=== PATIENT | male | born 1970 | race Caucasian/White ===

== ENCOUNTER 2023-11-19 16:00 | Emergency (ER) | payer MEDICAID, SELFPAY ==
[2023-11-19 16:01] VITALS: BP 141/107; PULSE 91; RESP 20; TEMP 36.1; O2SAT 98; BMI 32.5
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
--- NOTE | 2023-11-19 16:42 | CT_ITS ---
EXAM: CT CERVICAL SPINE WITHOUT INTRAVENOUS CONTRAST CLINICAL INDICATION: Injury/Pain TECHNIQUE: Helically acquired images were obtained of the cervical spine without intravenous contrast. 2D reformatted images were reviewed. This CT exam was performed using one or more of the following dose reduction techniques: automated exposure control, adjustment of the mA and/or kV according to patient size, and/or use of iterative reconstruction technique. RADIATION DOSE: CTDIvol = 27.45 mGy, DLP = 587.75 mGy-cm COMPARISON: No relevant prior studies available. FINDINGS: VERTEBRAE: Unremarkable. No fracture. No traumatic subluxation. No discrete lytic or blastic abnormality. Normal alignment. Normal craniocervical junction and cervicothoracic junction. DISCS/SPINAL CANAL/NEURAL FORAMINA: Degenerative disc disease at C4-C5 and C5-C6. These levels show loss of disc height, prominent posterior marginal osteophytes and disc bulges especially at C4-C5 and worse to the left with narrowing of the left neural foramina at both levels. Disc heights are preserved at other levels. No critical stenosis. SOFT TISSUES: Unremarkable. No prevertebral soft tissue swelling. LYMPH NODES: Unremarkable. No cervical adenopathy. LUNG APICES: Unremarkable as visualized. Clear. CT/Spine Cervical without Contras IMPRESSION: No evidence of acute cervical spinal fracture or spondylolisthesis. Degenerative disc disease including posterior disc bulges at C4-C5 and C5-C6. Electronically Signed: Esteban Dixon MD at 17:20 EDT ,
[2023-11-19] MEDS: HYDROcodone Bitartrate/Apap 5/325 Tablet PO (16:47)
--- NOTE | 2023-11-19 17:00 | RAD_ITS ---
STUDY: X-RAY - LEFT HAND REASON FOR EXAM: Male, 53 years old. Injury/Pain TECHNIQUE: 3 view(s) of the hand. COMPARISON: None. FINDINGS: Normal radiocarpal articulation. Normal distal radioulnar joint. Normal visualized carpal bones. Normal carpal articulations Normal carpometacarpal articulation of the thumb. Normal second through fifth carpometacarpal joints. Normal metacarpi. Normal metacarpophalangeal joint of the thumb. Normal interphalangeal joint of the thumb. Normal proximal and distal phalanges of the thumb. Normal metacarpophalangeal joints of the second through fifth fingers. Normal proximal and distal interphalangeal joints of the second through fifth fingers. Normal phalanges of the second through fifth fingers. The soft tissue structures are unremarkable. RAD/Hand Min 3 Views IMPRESSION: Normal x-ray examination of the hand. Electronically Signed: Esteban Dixon MD at 17:25 EDT ,
--- NOTE | 2023-11-19 17:00 | RAD_ITS ---
STUDY: X-RAY - LEFT SHOULDER REASON FOR EXAM: Male, 53 years old. Injury/Pain TECHNIQUE: 4 view(s) of the shoulder. COMPARISON: None. FINDINGS: Normal glenohumeral articulation. There is degenerative arthrosis of the acromioclavicular joint without inferior osseous spur formation. Normal acromion. Normal humeral head and visualized proximal humerus. The soft tissue structures are unremarkable. There is no demonstrated fracture. Normal visualized pulmonary apex. RAD/Shoulder min 2 Views IMPRESSION: No acute fracture or dislocation seen. Electronically Signed: Esteban Dixon MD at 17:31 EDT ,
[2023-11-19 18:32] VITALS: BP 129/86; PULSE 78; RESP 16; TEMP 36.2; O2SAT 97
== END 2023-11-19 18:33 | disposition home or self-care (01) ==
PROVIDERS: Emergency Provider Emergency Medicine; Visit Provider Emergency Medicine
DX: S16.1XXA Strain of muscle, fascia and tendon at neck level, initial encounter (principal); S60.222A Contusion of left hand, initial encounter; S46.912A Strain of unspecified muscle, fascia and tendon at shoulder and upper arm level, left arm, initial encounter; Y92.410 Unspecified street and highway as the place of occurrence of the external cause; V48.5XXA Car driver injured in noncollision transport accident in traffic accident, initial encounter; Z90.49 Acquired absence of other specified parts of digestive tract
CPT/HCPCS: 72125; 73030; 73130; 99282